=== PATIENT | female | born 1930 | race Hispanic/Latino ===

== ENCOUNTER → 2018-09-15 | Day surgery (SDC) | payer BC ==
[~2018-09-15] MED LIST: ASPIR 8181 MG PO; AZELASTINE HCL6 ML OP; HYDRALAZINE HCL25 MG PO; LANSOPRAZOLE30 MG PO; LEVOTHYROXINE50 MCG PO; LIDOCAINE HCL50 ML TOP; NIFEDIPINE ER30 M1 PO; OMEPRAZOLE40 MG PO; PROPOFOL IV EMULSION 10 MG/ML 50 ML VIAL ONE; QUETIAPINE FUM100 MG PO; RENAGEL800 MG PO; RENAVITE PO; SODIUM CHLORIDE 0.9% 500ML 500 ML ONE; VENTOLIN HFA18 GM INH; VIT D PO
--- OUTSIDE RECORDS SUMMARY | 2018-09-15 05:54 | XMS REPORT ---
[facility] Address Unknown Phone Unavailable Care Team Providers Care Police Surgeon Name Role Phone Unavailable Unavailable Payers Payer Name Policy Type Policy Number Effective Date Expiration Date Problems This patient has no known problems. Allergies, Adverse Reactions, Alerts Allergy Name Allergy Type Status Severity Reaction(s) Onset Date Inactive Date Treating Clinician Comments hydrochlorothiazide DA Active [place] 2018-07-31 00:00:00 hydrochlorothiazide DA Active [place] 2018-04-17 00:00:00 hydrochlorothiazide DA Active [place] 2017-12-08 00:00:00 Medications This patient has no known medications.
[2018-09-15 09:45] VITALS: BP 169/65
== END | disposition home or self-care (01) ==
LOC: OR 05:52
PROVIDERS: ATTEND Internal Medicine Gastroenterology
DX: K29.50 Unspecified chronic gastritis without bleeding (principal); K29.80 Duodenitis without bleeding; K31.89 Other diseases of stomach and duodenum; K44.9 Diaphragmatic hernia without obstruction or gangrene; K21.9 Gastro-esophageal reflux disease without esophagitis; K59.00 Constipation, unspecified; I12.0 Hypertensive chronic kidney disease with stage 5 chronic kidney disease or end stage renal disease; N18.6 End stage renal disease; J44.9 Chronic obstructive pulmonary disease, unspecified; I25.10 Atherosclerotic heart disease of native coronary artery without angina pectoris; Z79.82 Long term (current) use of aspirin; Z99.2 Dependence on renal dialysis; Z99.81 Dependence on supplemental oxygen; Z95.1 Presence of aortocoronary bypass graft
CPT/HCPCS: 36415; 43239; 84132; J2704; J7040

== ENCOUNTER → 2018-09-22 | Day surgery (SDC) | payer BC ==
[2018-09-22 09:59] VITALS: BP 146/68
== END | disposition home or self-care (01) ==
LOC: OR 06:05
PROVIDERS: ATTEND Internal Medicine Gastroenterology
DX: D12.0 Benign neoplasm of cecum (principal); D12.2 Benign neoplasm of ascending colon; D12.3 Benign neoplasm of transverse colon; D12.4 Benign neoplasm of descending colon; R12 Heartburn; K92.1 Melena; K59.00 Constipation, unspecified; R07.9 Chest pain, unspecified; Z95.1 Presence of aortocoronary bypass graft; I12.0 Hypertensive chronic kidney disease with stage 5 chronic kidney disease or end stage renal disease; N18.6 End stage renal disease; Z99.2 Dependence on renal dialysis; J44.9 Chronic obstructive pulmonary disease, unspecified; E05.90 Thyrotoxicosis, unspecified without thyrotoxic crisis or storm; K57.90 Diverticulosis of intestine, part unspecified, without perforation or abscess without bleeding; K64.8 Other hemorrhoids
CPT/HCPCS: 36415; 45384; 45385; 84132; J2704; J7040; 44391